=== PATIENT | female | born 1955 | race Caucasian/White ===

== ENCOUNTER 2018-06-08 01:07 | Inpatient (IN) | payer MEDICAID, OTHER ==
[~2018-06-08] VITALS: Ht 157.5 cm; Wt 53.6 kg
[~2018-06-08 01:07] MED LIST: LEVO75TA5 PO
[2018-06-08] MEDS ORDERED: ONDANSETRON 2MG/ML, 2ML ONE (01:54)
[2018-06-08] MEDS ORDERED: ACETAMINOPHEN 500 MG TABLET ONE (01:55)
[2018-06-08] MEDS ORDERED: ONDANSETRON 2MG/ML, 2ML IVPush ONE (02:00)
[2018-06-08] MEDS ORDERED: ACETAMINOPHEN 500 MG TABLET PO ONE (02:00)
[2018-06-08 02:14] LABS: BASOPHILS # (AUTO) 0.01 x10^3/uL (0-0.1); BASOPHILS % (AUTO) 0 % (0-1); EOSINOPHILS # (AUTO) 0.02 x10^3/uL (0-0.4); EOSINOPHILS % (AUTO) 0 % (1-7); LYMPHOCYTES # (AUTO) 0.72 x10^3/uL (1-3.4); LYMPHOCYTES % (AUTO) 9 % (22-44); MD NO; MEAN CORPUSCULAR HEMOGLOBIN 31.5 pg (27.0-34.8); MEAN CORPUSCULAR HGB CONC 33.6 g/dL (32.4-35.8); MEAN CORPUSCULAR VOLUME 93.9 fL (80-100); MEAN PLATELET VOLUME 7.8 fL (7.4-10.4); MONOCYTES # (AUTO) 0.29 x10^3/uL (0.2-0.8); MONOCYTES % (AUTO) 4 % (2-9); NEUTROPHILS # (AUTO) 7.18 x10^3/uL (1.8-6.8); NEUTROPHILS % (AUTO) 87 % (42-75); PLATELET COUNT 206 x10^3/uL (130-400); RED BLOOD COUNT 3.81 x10^6/uL (3.82-5.3); RED CELL DISTRIBUTION WIDTH 14.4 % (9.6-15.2)
[2018-06-08 02:21] LABS: ALBUMIN 3.6 g/dL (3.4-5.0); ANION GAP 9 mmol/L (5-15); CALCIUM 8.5 mg/dL (8.5-10.1); CHLORIDE 104 mmol/L (98-107); CREATININE 0.83 mg/dL (0.55-1.02)
[2018-06-08] MEDS ORDERED: NS + 20MEQ KCL 1,000 ML IV SCH (05:22)
[2018-06-08] MEDS ORDERED: DOCUSATE 100 MG CAPSULE PO PRN (05:30)
[2018-06-08] MEDS ORDERED: morphine SULFATE 10 MG/ML, 1ML IVPush PRN (05:30)
[2018-06-08] MEDS ORDERED: POLYETHYLENE GLYCOL 17 GM PACKET PO PRN (05:30)
[2018-06-08] MEDS ORDERED: ACETAMINOPHEN 325 MG TABLET PO PRN (05:30)
[2018-06-08] MEDS ORDERED: OMNIPAQUE 350 MG/ML, 100ML BOTTLE ONE (05:40)
[2018-06-08 07:04] VITALS: BP 126/74
[2018-06-08] MEDS: OXYcodone IR 5MG TABLET PO PRN ×2 (08:13→15:06)
[2018-06-08] MEDS: LEVOTHYROXINE 75 MCG TABLET PO SCH (08:13)
[2018-06-08] MEDS: SENNA/DOCUSATE TABLET PO SCH (08:18)
[2018-06-08] MEDS: FAMOTIDINE 20 MG/2 ML IVPush SCH ×2 (08:18→21:04)
[2018-06-08] MEDS: ONDANSETRON 2MG/ML, 2ML IVPush PRN ×2 (09:23→15:05)
[2018-06-08 12:37] VITALS: BP 119/73
[2018-06-08 13:27] LABS: MICROSCOPIC INDICATED
[2018-06-08 13:57] LABS: CULTURE INDICATED? NO
[2018-06-08] MEDS: NS + 20MEQ KCL 1,000 ML IV SCH (15:08)
[2018-06-08 20:17] VITALS: BP 119/66
[2018-06-09] MEDS: NS + 20MEQ KCL 1,000 ML IV SCH ×2 (00:04→11:51)
[2018-06-09 01:50] VITALS: BP 118/70
[2018-06-09 05:22] LABS: BASOPHILS # (AUTO) 0.01 x10^3/uL (0-0.1); BASOPHILS % (AUTO) 0 % (0-1); EOSINOPHILS % (AUTO) 0 % (1-7); LYMPHOCYTES # (AUTO) 0.64 x10^3/uL (1-3.4); LYMPHOCYTES % (AUTO) 7 % (22-44); MD NO; MEAN CORPUSCULAR HEMOGLOBIN 31.7 pg (27.0-34.8); MEAN CORPUSCULAR HGB CONC 33.6 g/dL (32.4-35.8); MEAN CORPUSCULAR VOLUME 94.4 fL (80-100); MEAN PLATELET VOLUME 8.3 fL (7.4-10.4); MONOCYTES # (AUTO) 0.67 x10^3/uL (0.2-0.8); MONOCYTES % (AUTO) 7 % (2-9); NEUTROPHILS # (AUTO) 8.37 x10^3/uL (1.8-6.8); NEUTROPHILS % (AUTO) 86 % (42-75); PLATELET COUNT 220 x10^3/uL (130-400); RED BLOOD COUNT 3.93 x10^6/uL (3.82-5.3)
[2018-06-09 05:37] LABS: CHLORIDE 117 mmol/L (98-107)
[2018-06-09 05:53] LABS: ALANINE AMINOTRANSFERASE 21 U/L (12-78); ALBUMIN 3.2 g/dL (3.4-5.0); ALKALINE PHOSPHATASE 56 U/L (45-117); ANION GAP 8 mmol/L (5-15); BILIRUBIN,TOTAL 0.3 mg/dL (0.2-1.0); CALCIUM 7.8 mg/dL (8.5-10.1); CREATININE 0.82 mg/dL (0.55-1.02); THYROID STIMULATING HORMONE 0.369 mIU/L (0.358-3.740); TOTAL PROTEIN 6.3 g/dL (6.4-8.2)
[2018-06-09 07:22] VITALS: BP 114/68
[2018-06-09] MEDS: SENNA/DOCUSATE TABLET PO SCH (09:00)
[2018-06-09] MEDS: LEVOTHYROXINE 75 MCG TABLET PO SCH (11:49)
[2018-06-09] MEDS: FAMOTIDINE 20 MG/2 ML IVPush SCH (11:50)
[2018-06-09 14:19] VITALS: BP 123/68
[2018-06-09] MEDS ORDERED: POLY17PO5 PO (15:11)
== END 2018-06-09 16:12 | disposition home or self-care (01) | DRG 394 ==
LOC: ED 05:14 → EDIP 05:15 → SUATTDRO 05:15 → 3NE 05:45
PROVIDERS: ADMIT Family Medicine; ATTEND Family Medicine
PROC: 0D9670Z Drainage of Stomach with Drainage Device, Via Natural or Artificial Opening (ICD-10-PCS; principal; 2018-06-08)
DX: K94.19 Other complications of enterostomy (principal); K56.52 Intestinal adhesions [bands] with complete obstruction; Y83.8 Other surgical procedures as the cause of abnormal reaction of the patient, or of later complication, without mention of misadventure at the time of the procedure; Y92.89 Other specified places as the place of occurrence of the external cause; E03.9 Hypothyroidism, unspecified; Z82.0 Family history of epilepsy and other diseases of the nervous system; Z83.3 Family history of diabetes mellitus; Z90.49 Acquired absence of other specified parts of digestive tract
CPT/HCPCS: 36415; 74250; S0028; 74177; 80048; 80053; 81001; 82040; 83605; 83735; 84443; 85025; 96374; G0378; J2405; J3480; Q9967

== ENCOUNTER 2021-04-18 05:39 | Emergency (ER) | payer OTHER ==
[~2021-04-18] VITALS: Ht 157.5 cm; Wt 49.0 kg
[~2021-04-18 05:39] MED LIST changes: +POLY17PO5 PO
--- NOTE | 2021-04-18 06:05 | NUR ---
PT PRESENTS TO ER AND STATES THAT SHE HAS DEVELOPED A STOMACH ULCER, PT STATES SHE FEELS VERY NAUSEOUS AND DISCOMFORT AND BURNING IN HER STERNAL REGION, THIS HAS BEEN GETTING WORSE OVER THE PAST FEW WEEKS, PT STATES WHEN SHE WAS TAKING ANTACIDS SHE FELT MORE NORMAL BUT WHEN SHE STOPPED TAKING THE ANTACIDS THE ABOVE SYMPTOMS STARTED
[2021-04-18] MEDS ORDERED: FAMOTIDINE 20 MG/2 ML ONE (06:23)
[2021-04-18] MEDS ORDERED: MAALOX/HYOSCYAMINE/LIDOCAINE 45 ML BTL ONE (06:23)
[2021-04-18] MEDS ORDERED: ONDANSETRON 2MG/ML, 2ML ONE (06:23)
[2021-04-18] MEDS ORDERED: MAALOX/HYOSCYAMINE/LIDOCAINE 45 ML BTL PO ONE (06:30)
[2021-04-18] MEDS ORDERED: ONDANSETRON 2MG/ML, 2ML IVPush ONE (06:30)
[2021-04-18] MEDS ORDERED: SODIUM CHLORIDE FLUSH 10ML SYR IVF ONE (06:30)
[2021-04-18] MEDS ORDERED: FAMOTIDINE 20 MG/2 ML IVPush ONE (06:30)
[2021-04-18 06:44] LABS: BASOPHILS % (AUTO) 0 % (0-1); EOSINOPHILS % (AUTO) 1 % (1-7); LYMPHOCYTES % (AUTO) 19 % (22-44); MEAN CORPUSCULAR HEMOGLOBIN 31.4 pg (27.0-34.8); MEAN CORPUSCULAR HGB CONC 33.4 g/dL (32.4-35.8); MEAN PLATELET VOLUME 7.6 fL (7.4-10.4); MONOCYTES % (AUTO) 6 % (2-9); NEUTROPHILS % (AUTO) 74 % (42-75); PLATELET COUNT 189 x10^3/uL (130-400); RED BLOOD COUNT 4.27 x10^6/uL (3.82-5.3); RED CELL DISTRIBUTION WIDTH 14.4 % (9.6-15.2)
--- NOTE | 2021-04-18 06:54 | NUR ---
GAVE REPORT TO FABRIZIO JACKSON
[2021-04-18 06:55] LABS: ALBUMIN 3.5 g/dL (3.4-5.0); ANION GAP 6 mmol/L (5-15); CALCIUM 9.6 mg/dL (8.5-10.1); CHLORIDE 107 mmol/L (98-107)
[2021-04-18 06:58] LABS: ALANINE AMINOTRANSFERASE 19 U/L (12-78); ALKALINE PHOSPHATASE 56 U/L (45-117); BILIRUBIN,TOTAL 0.4 mg/dL (0.2-1.0); CREATININE 0.97 mg/dL (0.55-1.02); TOTAL PROTEIN 7.2 g/dL (6.4-8.2); TROPONIN I < 0.015 ng/mL (0.000-0.045)
--- NOTE | 2021-04-18 07:24 | NUR ---
PT IN BED IN GOWN WITH CONT CABLE WIRER, SPO2, BP Q 30 MIN, SIDE RAILS UP X2, CALL LIGHT IN REACH. WENT OVER PLAN OF CARE FROM ORDER LIST, AGREES TO PLAN OF CARE. REPORTS NAUSEA, NO PAIN. MED GIVEN PER EMAR. NAD
[2021-04-18] MEDS ORDERED: ONDANSETRON ODT 4 MG ONE (08:37)
[2021-04-18 08:56] VITALS: BP 124/74
== END 2021-04-18 08:59 | disposition home or self-care (01) ==
LOC: ED 06:26
DX: K29.00 Acute gastritis without bleeding (principal); R11.0 Nausea
CPT/HCPCS: 36415; 71045; 80053; 83690; 84484; 85025; 93005; 96374; 96375; 99285; J2405